=== PATIENT | female | born 1960 | race Caucasian/White ===

== ENCOUNTER 2018-02-01 22:45 | Emergency (ER) | payer MEDICAID ==
--- NOTE | 2018-02-01 23:17 | EDM.PDOC ---
ED HPI GENERAL MEDICAL PROBLEM - General Chief Complaint: Gastrointestinal Problem Stated Complaint: NVD Time Seen by Provider: 02/01/18 23:00 Source of Information: Reports: Patient History Limitations: Reports: No Limitations - History of Present Illness INITIAL COMMENTS - FREE TEXT/NARRATIVE: c/o GI sxs one day of diarrhea, nausea, no V, no F eats something "and it goes right through me" works [employer], 3rd shift, left early, boss wanted a note grandson has had same sxs no cramps taken no meds - Related Data Allergies Allergy/AdvReac Type Severity Reaction Status Date / Time cephalexin [From Keflex] Allergy Airway Verified 02/01/18 22:59 Tightness Home Meds: Home Meds Etodolac [Lodine] 300 mg PO ASDIRECTED 02/01/18 [History] Loperamide HCl [Anti-Diarrheal] 2 mg PO Q2H PRN #20 tablet 02/01/18 [Rx] Metoclopramide HCl 10 mg PO Q6H PRN #10 tablet 02/01/18 [Rx] Sulfamethoxazole/Trimethoprim [Bactrim Ds Tablet] 1 tab PO BID 02/01/18 [History ] ED ROS GENERAL - Review of Systems Review Of Systems: See Below Constitutional: Reports: Malaise, Decreased Appetite. Denies: Fever HEENT: Reports: No Symptoms Respiratory: Reports: No Symptoms Cardiovascular: Reports: No Symptoms Endocrine: Reports: No Symptoms GI/Abdominal: Reports: Diarrhea, Nausea. Denies: Vomiting : Reports: No Symptoms Musculoskeletal: Reports: No Symptoms Skin: Reports: No Symptoms Neurological: Reports: No Symptoms Psychiatric: Reports: No Symptoms Hematologic/Lymphatic: Reports: No Symptoms Immunologic: Reports: No Symptoms ED EXAM, GI/ABD - Physical Exam Exam: See Below Exam Limited By: No Limitations General Appearance: Alert, WD/WN, No Apparent Distress, Other (alert, nonill, pleasant) Ears: Normal External Exam Nose: Normal Inspection, Normal Mucosa, No Blood Throat/Mouth: Normal Inspection, Normal Lips, Normal Teeth, Normal Gums, Normal Oropharynx, Normal Voice, No Airway Compromise Head: Atraumatic, Normocephalic Neck: Normal Inspection, Supple, Non-Tender, Full Range of Motion Respiratory/Chest: No Respiratory Distress, Lungs Clear, Normal Breath Sounds, No Accessory Muscle Use, Chest Non-Tender Cardiovascular: Regular Rate, Rhythm, No Edema, No Gallop, No Murmur, No Rub GI/Abdominal Exam: Normal Bowel Sounds, Soft, Non-Tender, No Distention, No Mass Back Exam: Normal Inspection, Full Range of Motion, NT Extremities: Normal Inspection, Normal Range of Motion, Non-Tender, No Pedal Edema Neurological: Alert, Oriented, CN II-XII Intact, Normal Cognition, No Motor/ Sensory Deficits Psychiatric: Normal Affect, Normal Mood Skin Exam: Warm, Dry, Intact, Normal Color, No Rash Lymphatic: No Adenopathy Course - Vital Signs Last Recorded V/S: Last Vital Signs Temp 36.1 C 02/01/18 23:01 Pulse 76 02/01/18 23:01 Resp 14 02/01/18 23:01 BP 124/86 02/01/18 23:01 Pulse Ox 99 02/01/18 23:01 Departure - Departure Time of Disposition: 23:14 Disposition: Home, Self-Care 01 Condition: Good Clinical Impression: Gastroenteritis - Discharge Information Prescriptions: Loperamide HCl [Anti-Diarrheal] 2 mg PO Q2H PRN #20 tablet PRN Reason: Diarrhea Metoclopramide HCl 10 mg PO Q6H PRN #10 tablet PRN Reason: Nausea Instructions: Viral Gastroenteritis, Adult, [id number] Referrals: PCP,None [Primary Care Provider] - Forms: ED Department Discharge, ED Return to Work/School Form Additional Instructions: For nausea, take metoclopramide 10 mg 1 tab every 6 hours as needed. For diarrhea, take loperamide 2 mg 2 tabs, then 1 tab after each unformed stool up to 8 tabs in 24 hours. Increase fluids. No work for 2 days. See your doctor in 3 days if you are not better. Call your Physician or Return to Emergency Department if: * Your condition worsens in any way. * You develop fever greater than 100.4. * You have vomitting that does not stop with medications. * You have pain that is not controlled with medications.
[2018-02-01] MEDS: Metoclopramide 10 MG Tab PO ONE (23:25)
== END 2018-02-01 23:40 | disposition home or self-care (01) ==
LOC: FB.ED 22:45
DX: K52.9 Noninfective gastroenteritis and colitis, unspecified (principal); Z88.1 Allergy status to other antibiotic agents; Z79.899 Other long term (current) drug therapy
CPT/HCPCS: 99283; A9270-GY

== ENCOUNTER 2018-03-23 23:29 | Emergency (ER) | payer MEDICAID ==
[2018-03-23] MEDS ORDERED: Ketorolac 60 MG/2 ML SDV IM ONE (23:50)
[2018-03-23] MEDS ORDERED: Ketorolac 60 MG/2 ML SDV ONE (23:51)
--- NOTE | 2018-03-23 23:54 | EDM.PDOC ---
ED HPI GENERAL MEDICAL PROBLEM - General Chief Complaint: Upper Extremity Injury/Pain Stated Complaint: RT ARM PAIN Time Seen by Provider: 03/23/18 23:35 Source of Information: Reports: Patient History Limitations: Reports: No Limitations - History of Present Illness INITIAL COMMENTS - FREE TEXT/NARRATIVE: 57 y.o.w.f came to the ed due to some numbness at her left shoulder after hitting a door frame getting off a shower. Pt has no loss of function of her left arm or shoulder. She has to work tonight and wants to take off today and go back to work tomorrow. No other acute medical issues. BP 110/63 pulse 72 RR 18 Pulse 100% on RA Temp: please see nursing notes. Onset Date: 03/23/18 Onset Time: 22:00 Duration: Hour(s):, Improving Location: Reports: Upper Extremity, Left Quality: Reports: Other (numbness left arm ) Severity: Mild Improves with: Reports: Rest Worsens with: Reports: Movement Context: Reports: Other (hit door frame with left shoulder after getting off the shower) Associated Symptoms: Reports: No Other Symptoms left upper arm Pain Score (Numeric/FACES): 5 - Related Data Allergies Allergy/AdvReac Type Severity Reaction Status Date / Time cephalexin [From Keflex] Allergy Airway Verified 03/23/18 23:41 Tightness Home Meds: Home Meds Etodolac [Lodine] 300 mg PO ASDIRECTED 02/01/18 [History] 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: - Infectious Disease History Infectious Disease History: Reports: Chicken Pox - Past Surgical History Female Surgical History: Reports: Section, Other (See Below) Other Female Surgeries/Procedures: lumpectomies Musculoskeletal Surgical History: Reports: Other (See Below) Other Musculoskeletal Surgeries/Procedures:: knee and foot surgury Social & Family History - Family History Family Medical History: Noncontributory - Tobacco Use Smoking Status *Q: Current Every Day Smoker Years of Tobacco use: 20 Packs/Tins Daily: 0.5 - Caffeine Use Caffeine Use: Reports: Coffee, Energy Drinks, Soda - Recreational Drug Use Recreational Drug Use: No Review of Systems - Review of Systems Review Of Systems: See Below Constitutional: Reports: No Symptoms Eyes: Reports: No Symptoms Ears: Reports: No Symptoms Nose: Reports: No Symptoms Mouth/Throat: Reports: No Symptoms Respiratory: Reports: No Symptoms Cardiovascular: Reports: No Symptoms GI/Abdominal: Reports: No Symptoms Genitourinary: Reports: No Symptoms Musculoskeletal: Reports: No Symptoms Skin: Reports: No Symptoms Neurological: Reports: Numbness (left arm) Psychiatric: Reports: No Symptoms ED EXAM, GENERAL - Physical Exam Exam: See Below Exam Limited By: No Limitations General Appearance: Alert, WD/WN, No Apparent Distress Eye Exam: Bilateral Eye: Normal Inspection Ears: Normal External Exam Ear Exam: Bilateral Ear: Auricle Normal Nose: Normal Inspection Throat/Mouth: Normal Inspection Head: Atraumatic, Normocephalic Neck: Normal Inspection, Supple, Non-Tender, Full Range of Motion Respiratory/Chest: No Respiratory Distress, Lungs Clear, Normal Breath Sounds, No Accessory Muscle Use, Chest Non-Tender Cardiovascular: Normal Peripheral Pulses, Regular Rate, Rhythm, No Edema, No Gallop, No JVD, No Murmur, No Rub Peripheral Pulses: 1+: Femoral (L) GI/Abdominal: Normal Bowel Sounds, Soft, Non-Tender, No Organomegaly, No Distention, No Abnormal Bruit, No Mass, Pelvis Stable (Female) Exam: Deferred Rectal (Female) Exam: Deferred Back Exam: Normal Inspection, Full Range of Motion Extremities: Normal Inspection, Normal Range of Motion, Non-Tender, No Pedal Edema, Normal Capillary Refill Neurological: Alert, Oriented, CN II-XII Intact, Normal Cognition, Normal Gait, Other (pt says she feels some numbness at her left arm after hitting her shoulder on a door frame) Psychiatric: Normal Affect, Normal Mood Skin Exam: Warm, Dry, Intact, Normal Color, No Rash Lymphatic: No Adenopathy Course - Vital Signs Text/Narrative:: 57 y.o.w.f came to the ed due to some numbness at her left shoulder after hitting a door frame getting off a shower. Pt has no loss of function of her left arm or shoulder. She has to work tonight and wants to take off today and go back to work tomorrow. No other acute medical issues. BP 110/63 pulse 72 RR 18 Pulse 100% on RA Temp: please see nursing notes. PE: 57 y.o.w.f wnwd came to the ed after she hit her left shoulder on a door frame at home, no loss of sandhya=ction of left arm, feels soem numbness, however. Impression: Neuropraxia left arm, minor discomfort Tx: Toradol Reexam: Improved Plan: D/C with instructions Last Recorded V/S: Last Vital Signs Temp Pulse 72 03/23/18 23:35 Resp 18 03/23/18 23:35 BP 110/63 03/23/18 23:35 Pulse Ox 100 03/23/18 23:35 - Orders/Labs/Meds Meds: Medications Discontinued Medications Generic Name Dose Route Start Last Admin Trade Name Nikia PRN Reason Stop Dose Admin Ketorolac Tromethamine 60 mg 03/23/18 23:50 03/23/18 23:52 Toradol IM 03/23/18 23:51 60 mg ONETIME ONE Administration Ketorolac Tromethamine Confirm 03/23/18 23:51 03/23/18 23:55 Toradol Administered 03/23/18 23:52 Not Given Dose 60 mg .ROUTE .STK-MED ONE Departure - Departure Time of Disposition: 23:51 Disposition: Home, Self-Care 01 Condition: Good Clinical Impression: Neuropraxia of left upper extremity Qualifiers: Encounter type: initial encounter Qualified Code(s): S44.92XA - Injury of unspecified nerve at shoulder and upper arm level, left arm, initial encounter - Discharge Information Referrals: PCP,None [Primary Care Provider] - Forms: ED Department Discharge, ED Return to Work/School Form Additional Instructions: Please take Motrin for pain, apply ice to the affected area, please follow up, come back if your symptoms get worse acutely.
== END 2018-03-23 23:58 | disposition home or self-care (01) ==
LOC: FB.ED 23:29
DX: S44.92XA Injury of unspecified nerve at shoulder and upper arm level, left arm, initial encounter (principal); F17.210 Nicotine dependence, cigarettes, uncomplicated; Z88.1 Allergy status to other antibiotic agents; W22.8XXA Striking against or struck by other objects, initial encounter
CPT/HCPCS: 96372; 99283; J1885

== ENCOUNTER 2018-04-13 22:09 | Emergency (ER) | payer MEDICAID ==
[2018-04-13] MEDS ORDERED: predniSONE 20 MG Tab PO ONE (22:31)
--- NOTE | 2018-04-13 22:39 | EDM.PDOC ---
ED HPI GENERAL MEDICAL PROBLEM - General Chief Complaint: General Stated Complaint: RA JOINTS PAIN Time Seen by Provider: 04/13/18 22:30 Source of Information: Reports: Patient History Limitations: Reports: No Limitations - History of Present Illness INITIAL COMMENTS - FREE TEXT/NARRATIVE: Complains of bilateral hand and foot pain. Feels like Rheumatoid Arthritis flare. Patient requests Prednisone burst and Etodolac, which is what she is usually prescribed for RA flare. 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: Musculoskeletal History: Reports: RA - Infectious Disease History Infectious Disease History: Reports: Chicken Pox - Past Surgical History Female Surgical History: Reports: Section, Other (See Below) Other Female Surgeries/Procedures: lumpectomies Musculoskeletal Surgical History: Reports: Other (See Below) Other Musculoskeletal Surgeries/Procedures:: knee and foot surgury Social & Family History - Family History Family Medical History: Noncontributory - Tobacco Use Smoking Status *Q: Current Every Day Smoker Tobacco Use Within Last Twelve Months: Cigarettes - Caffeine Use Caffeine Use: Reports: Coffee, Energy Drinks, Soda - Alcohol Use Alcohol Use Frequency: Rarely ED ROS GENERAL - Review of Systems Review Of Systems: See Below Constitutional: Reports: No Symptoms HEENT: Reports: No Symptoms Respiratory: Reports: No Symptoms Cardiovascular: Reports: No Symptoms Endocrine: Reports: No Symptoms GI/Abdominal: Reports: No Symptoms : Reports: No Symptoms Musculoskeletal: Reports: Hand Pain, Foot Pain Skin: Reports: No Symptoms Neurological: Reports: No Symptoms Psychiatric: Reports: No Symptoms Hematologic/Lymphatic: Reports: No Symptoms Immunologic: Reports: No Symptoms ED EXAM, GENERAL - Physical Exam Exam: See Below Exam Limited By: No Limitations General Appearance: Alert, WD/WN, No Apparent Distress Nose: Normal Inspection Throat/Mouth: Normal Inspection, No Airway Compromise Head: Atraumatic, Normocephalic Neck: Normal Inspection, Supple, Full Range of Motion Respiratory/Chest: No Respiratory Distress, Lungs Clear, Normal Breath Sounds Cardiovascular: Regular Rate, Rhythm, No Gallop, No Murmur, No Rub GI/Abdominal: No Distention Extremities: Normal Inspection Neurological: Alert, Oriented, Normal Cognition, Normal Gait, No Motor/Sensory Deficits Psychiatric: Normal Affect, Normal Mood Skin Exam: Warm, Dry, Intact Course - Orders/Labs/Meds Meds: Medications Discontinued Medications Generic Name Dose Route Start Last Admin Trade Name Freq PRN Reason Stop Dose Admin Prednisone 60 mg 04/13/18 22:31 Prednisone PO 04/13/18 22:32 ONETIME ONE Departure - Departure Time of Disposition: 22:36 Disposition: Home, Self-Care 01 Clinical Impression: Rheumatoid arthritis flare - Discharge Information Prescriptions: Etodolac 300 mg PO TID PRN #20 capsule PRN Reason: Pain (Moderate 4-6) predniSONE [Prednisone] 60 mg PO DAILY 4 Days #12 tablet Referrals: PCP,None [Primary Care Provider] - Additional Instructions: Follow up with your primary physician in 2-3 days
== END 2018-04-13 22:48 | disposition home or self-care (01) ==
LOC: FB.ED 22:09
DX: M06.9 Rheumatoid arthritis, unspecified (principal); Z88.1 Allergy status to other antibiotic agents; Z79.899 Other long term (current) drug therapy; F17.200 Nicotine dependence, unspecified, uncomplicated
CPT/HCPCS: 99283; A9270-GY

== ENCOUNTER 2018-12-26 19:36 | Emergency (ER) | payer SELFPAY ==
[2018-12-26] MEDS ORDERED: Ketorolac 60 MG/2 ML SDV IM ONE (19:47)
--- NOTE | 2018-12-26 19:53 | EDM.PDOC ---
ED HPI GENERAL MEDICAL PROBLEM - General Stated Complaint: LT HIP PAIN Time Seen by Provider: 12/26/18 19:47 Source of Information: Reports: Patient History Limitations: Reports: No Limitations - History of Present Illness INITIAL COMMENTS - FREE TEXT/NARRATIVE: 58 y.o.w.f came to the ed 1 week after she fell at the parking lot at work otu her back and has low back pain and left buttock pain when ambulating. Pt stand for 12 hours at work daily. pt took tylenol for pain, which did not help. No N/ V/D no dizziness no other acute medical issues. BP 110/69 RR 18 Pulse ox 100% on RA temp 36.8 Pulse 81 Onset Date: 12/19/18 Onset Time: 10:00 Duration: Week(s): Location: Reports: Lower Extremity, Left Quality: Reports: Dull, Pressure, Throbbing Severity: Moderate Improves with: Reports: Cold Therapy, Medication, Rest Worsens with: Reports: Movement Context: Reports: Trauma (fall) Associated Symptoms: Reports: No Other Symptoms left hip Pain Score (Numeric/FACES): 9 - Related Data Allergies Allergy/AdvReac Type Severity Reaction Status Date / Time cephalexin [From Keflex] Allergy Airway Verified 12/26/18 19:40 Tightness Home Meds: Home Meds Etodolac 300 mg PO TID PRN #20 capsule 04/13/18 [Rx] predniSONE [Prednisone] 60 mg PO DAILY 4 Days #12 tablet 04/13/18 [Rx] Cyclobenzaprine [Flexeril] 10 mg PO TID 12/26/18 [History] 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: Musculoskeletal History: Reports: RA - Infectious Disease History Infectious Disease History: Reports: Chicken Pox - Past Surgical History Female Surgical History: Reports: Section, Other (See Below) Other Female Surgeries/Procedures: lumpectomies Musculoskeletal Surgical History: Reports: Other (See Below) Other Musculoskeletal Surgeries/Procedures:: knee and foot surgury Social & Family History - Family History Family Medical History: Noncontributory - Caffeine Use Caffeine Use: Reports: Coffee, Energy Drinks, Soda Review of Systems - Review of Systems Review Of Systems: See Below Constitutional: Reports: No Symptoms Eyes: Reports: No Symptoms Ears: Reports: No Symptoms Nose: Reports: No Symptoms Mouth/Throat: Reports: No Symptoms Respiratory: Reports: No Symptoms Cardiovascular: Reports: No Symptoms GI/Abdominal: Reports: No Symptoms Genitourinary: Reports: No Symptoms Musculoskeletal: Reports: Back Pain Skin: Reports: No Symptoms Neurological: Reports: No Symptoms Psychiatric: Reports: No Symptoms ED EXAM, GENERAL - Physical Exam Exam: See Below Exam Limited By: No Limitations General Appearance: Alert, WD/WN, Mild Distress Eye Exam: Bilateral Eye: Normal Inspection Ears: Normal External Exam Ear Exam: Bilateral Ear: Auricle Normal Nose: Normal Inspection, Normal Mucosa, No Blood Throat/Mouth: Normal Inspection, Normal Lips, Normal Teeth, Normal Gums, Normal Voice, No Airway Compromise Head: Atraumatic, Normocephalic Neck: Normal Inspection, Supple, Non-Tender, Full Range of Motion Respiratory/Chest: No Respiratory Distress, Lungs Clear, Chest Non-Tender Cardiovascular: Normal Peripheral Pulses, Regular Rate, Rhythm, No Edema, No Gallop, No Rub Peripheral Pulses: 1+: Brachial (R) GI/Abdominal: Normal Bowel Sounds, Soft, Non-Tender, No Organomegaly, No Abnormal Bruit, No Mass (Female) Exam: Deferred Rectal (Female) Exam: Deferred Back Exam: Normal Inspection, Full Range of Motion Extremities: Normal Inspection, Normal Range of Motion, Non-Tender, No Pedal Edema, Normal Capillary Refill, Other (nl straight leg rising test) Neurological: Alert, Oriented, CN II-XII Intact Psychiatric: Normal Affect, Normal Mood Skin Exam: Warm, Dry, Intact, Normal Color, No Rash Lymphatic: No Adenopathy Course - Vital Signs Text/Narrative:: 58 y.o.w.f came to the ed 1 week after she fell at the parking lot at work otu her back and has low back pain and left buttock pain when ambulating. Pt stand for 12 hours at work daily. pt took tylenol for pain, which did not help. No N/ V/D no dizziness no other acute medical issues. BP 110/69 RR 18 Pulse ox 100% on RA temp 36.8 Pulse 81 PE: WNWD W F with left buttock pain Imaging: CT L spine and pelvic: NAD Labs: Not indicated Impression: Back pain, left buttock pain after a fall 1 week ago Tx: Toradol, ICE Reexam: Improved Plan: D/C with instruction Last Recorded V/S: Last Vital Signs Temp 36.4 C 12/26/18 19:36 Pulse 69 12/26/18 19:36 Resp 18 12/26/18 19:36 BP 110/69 12/26/18 19:36 Pulse Ox 100 12/26/18 19:36 - Orders/Labs/Meds Orders: Active Orders 24 hr Category Date Time Status Cooling Warming Measures [RC] ASDIRECTED Care 12/26/18 19:49 Active Lumbar Spine wo Cont [CT] Stat Exams 12/26/18 19:47 Taken Pelvis wo Cont [CT] Stat Exams 12/26/18 19:47 Taken Ice Bag [Ice Therapy] [OM.PC] Routine Oth 12/26/18 19:49 Ordered Meds: Medications Discontinued Medications Generic Name Dose Route Start Last Admin Trade Name Nikia PRN Reason Stop Dose Admin Ketorolac Tromethamine 60 mg 12/26/18 19:47 12/26/18 19:54 Toradol IM 12/26/18 19:48 60 mg ONETIME ONE Administration Departure - Departure Time of Disposition: 21:24 Disposition: Home, Self-Care 01 Condition: Good Clinical Impression: Back pain of lumbosacral region with sciatica - Discharge Information Instructions: Back Pain, Adult, [id number] Referrals: PCP,None [Primary Care Provider] - Forms: ED Return to Work/School Form Additional Instructions: Please apply ice to the affected area, Motrin 600 mg every 6 - 8 hours, please follow up, come back if your symptoms get worse acutely. - My Orders Last 24 Hours: My Active Orders 12/26/18 19:47 Lumbar Spine wo Cont [CT] Stat Pelvis wo Cont [CT] Stat 12/26/18 19:49 Cooling Warming Measures [RC] ASDIRECTED Ice Bag [Ice Therapy] [OM.PC] Routine - Assessment/Plan Last 24 Hours: My Active Orders 12/26/18 19:47 Lumbar Spine wo Cont [CT] Stat Pelvis wo Cont [CT] Stat 12/26/18 19:49 Cooling Warming Measures [RC] ASDIRECTED Ice Bag [Ice Therapy] [OM.PC] Routine
== END 2018-12-26 21:46 | disposition home or self-care (01) ==
LOC: FB.ED 19:36
DX: M54.42 Lumbago with sciatica, left side (principal); Z79.899 Other long term (current) drug therapy; Z88.1 Allergy status to other antibiotic agents; W19.XXXA Unspecified fall, initial encounter; Y92.481 Parking lot as the place of occurrence of the external cause
CPT/HCPCS: 72131; 72192; 96372; 99283; J1885

== ENCOUNTER 2019-02-27 22:25 | Emergency (ER) | payer BC, OTHER ==
--- NOTE | 2019-02-28 00:01 | EDM.PDOC ---
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, has worked on [employer] [employer] at [employer] 1.5y 6m ago she made an appointment with [facility], not able to get an appointment until next week cannot take MTX d/t allergic reaction (blotches on face), not on DMARDs at present had increased pain in her fingers and hands and L ankle and feet today, not able to go work and came here also uses tramadol 1/2 tab q6h prn, however has run out, says that Dr Guerra has given it to here once in the past, yet it is not showing up in the past year on MNPN has prednisone 20 mg at home, took one today, will typically take it for 3d with a flare has etodolac 800 mg at home which she takes BID with a flare requesting a RF on her tamadol tonight "so that I can work" - Related Data Allergies Allergy/AdvReac Type Severity Reaction Status Date / Time cephalexin [From Keflex] Allergy Airway Verified 02/27/19 22:51 Tightness Home Meds: Home Meds Cyclobenzaprine [Flexeril] 10 mg PO TID PRN 12/26/18 [History] Etodolac 800 mg PO BID 02/27/19 [History] Ketorolac [Toradol] 10 mg PO Q8H PRN 02/27/19 [History] predniSONE [Prednisone] 20 mg PO DAILY PRN 02/27/19 [History] traMADol [Ultram] 50 mg PO Q6H PRN 02/27/19 [History] Past Medical History - Past Health History Medical/Surgical History: Denies 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: Musculoskeletal History: Reports: RA - Infectious Disease History Infectious Disease History: Reports: Chicken Pox - Past Surgical History Female Surgical History: Reports: Section, Other (See Below) Other Female Surgeries/Procedures: lumpectomies Musculoskeletal Surgical History: Reports: Other (See Below) Other Musculoskeletal Surgeries/Procedures:: knee and foot surgury Social & Family History - Family History Family Medical History: Noncontributory - Tobacco Use Smoking Status *Q: Current Every Day Smoker Years of Tobacco use: 20 Packs/Tins Daily: 0.5 - Caffeine Use Caffeine Use: Reports: Coffee, Soda - Recreational Drug Use Recreational Drug Use: No ED ROS GENERAL - Review of Systems Review Of Systems: See Below Constitutional: Reports: No Symptoms HEENT: Reports: No Symptoms Respiratory: Reports: No Symptoms Cardiovascular: Reports: No Symptoms Endocrine: Reports: No Symptoms GI/Abdominal: Reports: No Symptoms : Reports: No Symptoms Musculoskeletal: Reports: Joint Pain, Joint Swelling Skin: Reports: No Symptoms Neurological: Reports: No Symptoms Psychiatric: Reports: No Symptoms Hematologic/Lymphatic: Reports: No Symptoms Immunologic: Reports: No Symptoms ED EXAM, GENERAL - Physical Exam Exam: See Below Exam Limited By: No Limitations General Appearance: Alert, WD/WN, No Apparent Distress Head: Atraumatic, Normocephalic Neck: Normal Inspection, Supple, Non-Tender, Full Range of Motion. No: Lymphadenopathy (R), Lymphadenopathy (L) Respiratory/Chest: No Respiratory Distress, Lungs Clear, Normal Breath Sounds, No Accessory Muscle Use, Chest Non-Tender Cardiovascular: Regular Rate, Rhythm, No Edema, No Murmur GI/Abdominal: Soft, Non-Tender, No Distention Back Exam: Normal Inspection, Full Range of Motion. No: CVA Tenderness (R), CVA Tenderness (L) Extremities: Other (mild swell of fingers and hand b/l, minimal pain on palpation, no red, no warm, slight swell of L ankle and slight tender) Neurological: Alert, Oriented, CN II-XII Intact, Normal Cognition, No Motor/ Sensory Deficits Psychiatric: Normal Affect, Normal Mood Skin Exam: Warm, Dry, Intact, Normal Color, No Rash Lymphatic: No Adenopathy Course - Vital Signs Last Recorded V/S: Last Vital Signs Temp 36.6 C 02/27/19 22:45 Pulse Resp 17 02/27/19 22:45 BP 94/57 L 02/27/19 22:45 Pulse Ox 100 02/27/19 22:45 Departure - Departure Time of Disposition: 23:56 Disposition: Home, Self-Care 01 Condition: Good Clinical Impression: Rheumatoid arthritis flare - Discharge Information *PRESCRIPTION DRUG MONITORING PROGRAM REVIEWED*: Yes *COPY OF PRESCRIPTION DRUG MONITORING REPORT IN PATIENT SHITAL: Yes Referrals: Eddie Guerra MD [Primary Care Provider] - Forms: ED Department Discharge, ED Return to Work/School Form Additional Instructions: For pain and inflammation, take the etodolac 800 mg 1 tab 2 times a day for the next week. For pain and inflammation, take acetaminophen 500 mg 2 tabs 3-4 times a day for the next week. For pain and inflammation, take the prednisone 20 mg 1 tab daily for 3 days. For pain, take the tramadol 50 mg 1 tab every 6 hours as needed. No alcohol. 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 See your primary care doctor if you need additional medication refills prior to your appointment with the electrician locomotive.
== END 2019-02-28 00:05 | disposition home or self-care (01) ==
LOC: FB.ED 22:25
DX: M06.9 Rheumatoid arthritis, unspecified (principal); F17.210 Nicotine dependence, cigarettes, uncomplicated; Z79.899 Other long term (current) drug therapy
CPT/HCPCS: 99282

== ENCOUNTER 2019-03-07 22:18 | Emergency (ER) | payer BC ==
--- NOTE | 2019-03-07 22:39 | EDM.PDOC ---
ED HPI GENERAL MEDICAL PROBLEM - General Chief Complaint: General Stated Complaint: ARTHRITIS FLARE UP Time Seen by Provider: 03/07/19 22:28 Source of Information: Reports: Patient, Old Records History Limitations: Reports: No Limitations - History of Present Illness INITIAL COMMENTS - FREE TEXT/NARRATIVE: Chrystal comes into [facility] ED with ongong sxs of joint pain, swelling, fatigue, and malaise over the past 5 mos. She has known RA, and has been off DMARDs for the past few years. She has since relapsed, has Prednisone and NSAIDs at home, but cannot manage sxs before upcoming appt. 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: Musculoskeletal History: Reports: RA - Infectious Disease History Infectious Disease History: Reports: Chicken Pox - Past Surgical History Female Surgical History: Reports: Section, Other (See Below) Other Female Surgeries/Procedures: lumpectomies Musculoskeletal Surgical History: Reports: Other (See Below) Other Musculoskeletal Surgeries/Procedures:: knee and foot surgury Social & Family History - Family History Family Medical History: Noncontributory - Caffeine Use Caffeine Use: Reports: Coffee, Soda ED ROS GENERAL - Review of Systems Review Of Systems: ROS reveals no pertinent complaints other than HPI. ED EXAM, GENERAL - Physical Exam Exam: See Below Exam Limited By: No Limitations General Appearance: Alert, WD/WN, Mild Distress Head: Normocephalic Neck: Normal Inspection, Supple, Non-Tender Respiratory/Chest: Lungs Clear, Chest Non-Tender Cardiovascular: Regular Rate, Rhythm, No Murmur Back Exam: Normal Inspection Extremities: Joint Swelling, Limited Range of Motion Neurological: Alert, Oriented, CN II-XII Intact, Normal Cognition, No Motor/ Sensory Deficits Psychiatric: Normal Affect, Normal Mood Skin Exam: Warm, Dry, Intact, Normal Color Lymphatic: No Adenopathy Course - Vital Signs Text/Narrative:: No meds were dispensed during ED visit. Departure - Departure Time of Disposition: 22:35 Disposition: Home, Self-Care 01 Condition: Fair Clinical Impression: Rheumatoid arthritis flare - Discharge Information *PRESCRIPTION DRUG MONITORING PROGRAM REVIEWED*: Not Applicable *COPY OF PRESCRIPTION DRUG MONITORING REPORT IN PATIENT SHITAL: Not Applicable Instructions: Arthritis, Onas-ma-Gars Referrals: Eddie Guerra MD [Primary Care Provider] - Forms: ED Department Discharge Additional Instructions: Follow-up with personal property appraiser on Wednesday. - Problem List & Annotations (1) Rheumatoid arthritis flare SNOMED Code(s): 551588935 Code(s): M06.9 - RHEUMATOID ARTHRITIS, UNSPECIFIED Status: Acute Current Visit: Yes Annotation/Comment:: A note for medical release from work was provided. She will continue Prednisone and NSAIDs and keep appt. with Rheumatology. - Problem List Review Problem List Initiated/Reviewed/Updated: Yes - Assessment/Plan Plan: Follow up with PCP.
== END 2019-03-07 22:35 | disposition home or self-care (01) ==
LOC: FB.ED 22:18
DX: M06.9 Rheumatoid arthritis, unspecified (principal)
CPT/HCPCS: 99283